=== PATIENT | male | born 1955 | race Caucasian/White ===

== ENCOUNTER → 2017-05-05 | Outpatient (CLI) | payer OTHER ==
[2017-05-05 14:20] LABS: PSA FREE 0.25 ng/mL (0.16-2.81)
[2017-05-05 14:21] LABS: PSA TOTAL 1.7 ng/mL (0.000-2.000)
== END ==
LOC: LAB.WCP 08:15
PROVIDERS: ATTEND Family Medicine
DX: R97.20 Elevated prostate specific antigen [PSA] (principal)
CPT/HCPCS: 36415; 84154

== ENCOUNTER 2018-03-12 07:05 | Day surgery (SDC) | payer OTHER ==
[2018-03-12] MEDS ORDERED: LACTATED RINGERS 1,000 ML IV ONE (07:24)
[2018-03-12] MEDS ORDERED: MIDAZOLAM 2 MG/2 ML VIAL IVP ONE (08:22)
[2018-03-12] MEDS ORDERED: fentaNYL 250 MCG/5 ML VIAL IVP ONE (08:22)
[2018-03-12 09:44] VITALS: BP 132/78
== END 2018-03-12 07:06 | disposition home or self-care (01) ==
LOC: SDS 07:05
PROVIDERS: ATTEND Surgery
PROC: 0DBK8ZX Excision of Ascending Colon, Via Natural or Artificial Opening Endoscopic, Diagnostic (ICD-10-PCS; principal; 2018-03-12 08:15)
DX: Z12.11 Encounter for screening for malignant neoplasm of colon (principal); K57.30 Diverticulosis of large intestine without perforation or abscess without bleeding; D12.2 Benign neoplasm of ascending colon; K64.8 Other hemorrhoids
CPT/HCPCS: 45380; J3010; J7120; 88305

== ENCOUNTER 2018-06-04 11:02 | Outpatient (CLI) | payer OTHER ==
[2018-06-04 19:17] LABS: BILIRUBIN,URINE NEGATIVE (NEGATIVE); GLUCOSE, URINE (UA) NEGATIVE (NEGATIVE); KETONES,URINE (UA) NEGATIVE (NEGATIVE); LEUKOCYTE ESTERASE, URINE NEGATIVE (NEGATIVE); NITRITE,URINE NEGATIVE (NEGATIVE); OCCULT BLOOD,URINE NEGATIVE (NEGATIVE); PH,URINE 5.5 PH (5.0-7.5); PROTEIN,URINE NEGATIVE (NEGATIVE); UROBILINOGEN,URINE 0.2 (NORMAL) E.U./dL (NORMAL)
[2018-06-04 19:18] LABS: CLARITY,URINE CLOUDY (CLEAR)
[2018-06-04 19:39] LABS: ALBUMIN 4.6 g/dL (3.2-5.5); ALBUMIN/GLOBULIN RATIO 1.4 (1.0-2.2); ALKALINE PHOSPHATASE 87 IU/L (42-121); ALT ALANINE AMINOTRANSFERASE 35 IU/L (10-60); AST ASPARTATE AMINOTRANSFERASE 26 IU/L (10-42); BILIRUBIN,TOTAL 1.2 mg/dL (0.2-1.0); BUN - BLOOD UREA NITROGEN 20 mg/dL (6-20); CALCIUM 9.2 mg/dL (8.5-10.3); CARBON DIOXIDE - CO2 23 mmol/L (21-32); CHLORIDE 104 mmol/L (101-111); CHOL/HDL RATIO 4.2 (<5.0); CHOLESTEROL 186 mg/dL; CREATININE 0.8 mg/dL (0.6-1.2); GFR - MDRD 98 (>89); GLUCOSE 104 mg/dL (70-100); HDL CHOLESTEROL 44 mg/dL; LDL CHOLESTEROL,CALCULATED 98 mg/dL; LDL/HDL RATIO 2.2 (<3.6); SODIUM 135 mmol/L (135-145); TOTAL PROTEIN 7.8 g/dL (6.7-8.2); VLDL CHOLESTEROL 44 mg/dL
[2018-06-04 19:41] LABS: PSA FREE 0.231 ng/mL (0.16-2.81)
[2018-06-04 19:42] LABS: PSA TOTAL 1.592 ng/mL (0.000-2.000)
[2018-06-04 20:59] LABS: AMORPHOUS SEDIMENT,UR Marked /LPF; BACTERIA,URINE None Seen /HPF (None Seen); RBC,URINE None Seen /HPF (0-5); SQUAMOUS EPITHELIAL CELL,UR NONE SEEN (<= Few)
== END 2018-06-04 11:03 | disposition home or self-care (01) ==
LOC: LAB.WCP 11:02
PROVIDERS: ATTEND Family Medicine
DX: R73.9 Hyperglycemia, unspecified (principal); I10 Essential (primary) hypertension; E78.5 Hyperlipidemia, unspecified; R97.20 Elevated prostate specific antigen [PSA]
CPT/HCPCS: 36415; 80053; 80061; 81001; 83721; 84154

== ENCOUNTER 2019-04-10 08:00 | Outpatient (CLI) | payer OTHER ==
[2019-04-10 18:59] LABS: BASOPHILS # (AUTO) 0.1 10^3/uL (0.0-0.1); BASOPHILS % (AUTO) 0.8 %; EOSINOPHILS # (AUTO) 0.2 10^3/uL (0.0-0.7); EOSINOPHILS % (AUTO) 2.4 %; HGB - HEMOGLOBIN 14.4 g/dL (14.0-18.0); LYMPHOCYTES # (AUTO) 2.5 10^3/uL (1.5-3.5); LYMPHOCYTES % (AUTO) 31.2 %; MEAN CORPUSCULAR HEMOGLOBIN 31.1 pg (27.0-31.0); MEAN CORPUSCULAR HGB CONC 33.5 g/dL (32.0-36.0); MEAN PLATELET VOLUME 8.2 fL (7.4-11.4); MONOCYTES # (AUTO) 0.7 10^3/uL (0.0-1.0); MONOCYTES % (AUTO) 9.2 %; NEUTROPHILS # (AUTO) 4.5 10^3/uL (1.5-6.6); NEUTROPHILS % (AUTO) 56.4 %; PLT - PLATELET COUNT 236 10^3/uL (130-450); RED BLOOD COUNT 4.64 10^6/uL (4.70-6.10); RED CELL DISTRIBUTION WIDTH 13.5 % (12.0-15.0)
[2019-04-10 19:10] LABS: ALBUMIN 4.8 g/dL (3.2-5.5); ALBUMIN/GLOBULIN RATIO 1.6 (1.0-2.2); ALKALINE PHOSPHATASE 61 IU/L (42-121); ALT ALANINE AMINOTRANSFERASE 35 IU/L (10-60); AST ASPARTATE AMINOTRANSFERASE 25 IU/L (10-42); BILIRUBIN,TOTAL 1.1 mg/dL (0.2-1.0); BUN - BLOOD UREA NITROGEN 18 mg/dL (6-20); CALCIUM 9.5 mg/dL (8.5-10.3); CARBON DIOXIDE - CO2 24 mmol/L (21-32); CHLORIDE 105 mmol/L (101-111); CHOLESTEROL 224 mg/dL; CREATININE 0.9 mg/dL (0.6-1.2); GFR - MDRD 85 (>89); GLUCOSE 99 mg/dL (70-100); HDL CHOLESTEROL 45 mg/dL; LDL CHOLESTEROL,CALCULATED 143 mg/dL; LDL/HDL RATIO 3.2 (<3.6); SODIUM 139 mmol/L (135-145); TOTAL PROTEIN 7.8 g/dL (6.7-8.2); VLDL CHOLESTEROL 36 mg/dL
== END 2019-04-10 08:01 | disposition home or self-care (01) ==
LOC: LAB.WCP 08:00
PROVIDERS: ATTEND Family Medicine
DX: R73.9 Hyperglycemia, unspecified (principal); I10 Essential (primary) hypertension; E78.5 Hyperlipidemia, unspecified; E66.3 Overweight
CPT/HCPCS: 36415; 80053; 80061; 81599; 83036; 83721; 84443; 85025

== ENCOUNTER 2019-10-29 09:51 | Outpatient (CLI) | payer OTHER ==
[2019-10-29 12:14] LABS: CHOL/HDL RATIO 5.4 (<5.0); CHOLESTEROL 243 mg/dL; HDL CHOLESTEROL 45 mg/dL; LDL CHOLESTEROL,CALCULATED 160 mg/dL; LDL/HDL RATIO 3.6 (<3.6); VLDL CHOLESTEROL 38 mg/dL
== END 2019-10-29 23:59 | disposition home or self-care (01) ==
LOC: LAB.N 09:51
PROVIDERS: ATTEND Family Medicine
DX: E78.5 Hyperlipidemia, unspecified (principal); R97.20 Elevated prostate specific antigen [PSA]
CPT/HCPCS: 36415; 80061; 83721; 84153

== ENCOUNTER 2020-01-01 14:37 | Outpatient (CLI) | payer OTHER ==
[2020-01-01 18:32] LABS: BASOPHILS # (AUTO) 0.1 10^3/uL (0.0-0.1); BASOPHILS % (AUTO) 1.1 %; EOSINOPHILS # (AUTO) 0.3 10^3/uL (0.0-0.7); EOSINOPHILS % (AUTO) 3.3 %; HGB - HEMOGLOBIN 12.7 g/dL (14.0-18.0); LYMPHOCYTES # (AUTO) 2.2 10^3/uL (1.5-3.5); MEAN CORPUSCULAR HEMOGLOBIN 30.5 pg (27.0-31.0); MEAN CORPUSCULAR VOLUME 92.3 fL (80.0-94.0); MEAN PLATELET VOLUME 9.8 fL (7.4-11.4); MONOCYTES # (AUTO) 0.8 10^3/uL (0.0-1.0); MONOCYTES % (AUTO) 10.4 %; NEUTROPHILS # (AUTO) 4.2 10^3/uL (1.5-6.6); NEUTROPHILS % (AUTO) 55.7 %; PLT - PLATELET COUNT 221 10^3/uL (130-450); RED BLOOD COUNT 4.17 10^6/uL (4.70-6.10); RED CELL DISTRIBUTION WIDTH 12.9 % (12.0-15.0); WHITE BLOOD COUNT 7.5 x10^3/uL (4.8-10.8)
[2020-01-01 19:15] LABS: ALBUMIN/GLOBULIN RATIO 1.2 (1.0-2.2); BILIRUBIN,TOTAL 0.9 mg/dL (0.2-1.0); CALCIUM 8.8 mg/dL (8.5-10.3); CREATININE 0.8 mg/dL (0.6-1.2); TOTAL PROTEIN 7.3 g/dL (6.7-8.2)
== END 2020-01-01 23:59 | disposition home or self-care (01) ==
LOC: LAB.N 14:37
PROVIDERS: ATTEND Family Medicine
DX: R10.9 Unspecified abdominal pain (principal)
CPT/HCPCS: 36415; 80053; 82150; 83690; 85025

== ENCOUNTER 2020-01-03 06:46 | Outpatient (CLI) | payer OTHER ==
--- NOTE | 2020-01-03 08:10 | Ultrasound Report ---
Reason: ABDOMINAL DISCOMFORT Procedure Date: 01/03/2020 Accession Number: [id number] / [id number] Procedure: US - Abdomen Complete CPT Code: Final Report FULL RESULT: EXAM: ABDOMEN ULTRASOUND EXAM DATE: 01/03/2020 07:44 AM. CLINICAL HISTORY: ABDOMINAL DISCOMFORT. COMPARISON: Ultrasound ABD 11/01/2008 8:[address] abdomen and pelvis 08/12/2008. TECHNIQUE: Real-time scanning was performed with static images obtained. FINDINGS: Liver: Mildly enlarged, 18.7 cm. Mildly hyperechoic throughout with mildly decreased posterior acoustic penetration suggesting diffuse steatosis. Main portal vein flow: Hepatopetal. Gallbladder: Surgically absent. Biliary System: Common bile duct measures 7 mm. No intrahepatic or extrahepatic ductal dilatation. Pancreas: Poorly visualized because of bowel gas. The body is grossly unremarkable. Kidneys: Right: 11.0 cm longitudinally. Normal. No contour-deforming mass, stones, or hydronephrosis. Left: 10.6 cm longitudinally. Normal. No contour-deforming mass, stones, or hydronephrosis. Spleen: 11.2 cm. Normal in size and echotexture. Aorta and Inferior Vena Cava: Minimal plaque in the distal abdominal aorta without abnormal dilation. Visualized IVC unremarkable. Other: No ascites. IMPRESSION: 1. Mild hepatomegaly. Mild diffuse hepatic steatosis. 2. No findings are identified to explain pain. RADIA
== END 2020-01-03 06:47 | disposition home or self-care (01) ==
LOC: DI 06:46
PROVIDERS: ATTEND Family Medicine
DX: R10.9 Unspecified abdominal pain (principal); K76.0 Fatty (change of) liver, not elsewhere classified
CPT/HCPCS: 76700

== ENCOUNTER 2020-01-03 08:00 | Outpatient (CLI) | payer OTHER ==
[2020-01-03 12:54] LABS: H. PYLORIS ANTIGEN STL NEGATIVE (Negative)
== END 2020-01-03 23:59 | disposition home or self-care (01) ==
LOC: LAB.R 08:00
PROVIDERS: ATTEND Family Medicine
DX: R10.9 Unspecified abdominal pain (principal)
CPT/HCPCS: 87338; 87493

== ENCOUNTER 2020-12-30 08:00 | Outpatient (CLI) | payer OTHER ==
[2020-12-30 12:25] LABS: BASOPHILS % (AUTO) 0.5 %; EOSINOPHILS # (AUTO) 0.2 10^3/uL (0.0-0.7); EOSINOPHILS % (AUTO) 2.1 %; HCT - HEMATOCRIT 40.8 % (42.0-52.0); HGB - HEMOGLOBIN 13.9 g/dL (14.0-18.0); LYMPHOCYTES # (AUTO) 2.1 10^3/uL (1.5-3.5); LYMPHOCYTES % (AUTO) 24.6 %; MEAN CORPUSCULAR HEMOGLOBIN 32.2 pg (27.0-31.0); MEAN CORPUSCULAR HGB CONC 34.1 g/dL (32.0-36.0); MEAN CORPUSCULAR VOLUME 94.4 fL (80.0-94.0); MEAN PLATELET VOLUME 10.1 fL (7.4-11.4); MONOCYTES # (AUTO) 0.7 10^3/uL (0.0-1.0); MONOCYTES % (AUTO) 8.2 %; NEUTROPHILS # (AUTO) 5.5 10^3/uL (1.5-6.6); NEUTROPHILS % (AUTO) 64.2 %; PLT - PLATELET COUNT 219 10^3/uL (130-450); RED BLOOD COUNT 4.32 10^6/uL (4.70-6.10); RED CELL DISTRIBUTION WIDTH 12.7 % (12.0-15.0); WHITE BLOOD COUNT 8.5 x10^3/uL (4.8-10.8)
[2020-12-30 12:53] LABS: CREATININE,URINE 183.3 mg/dL; MICROALBUM/CREATININE RATIO,UR 3.8 ug/mg (<30.0); MICROALBUMIN,URINE 0.7 mg/dL (0-300.0)
[2020-12-30 12:57] LABS: THYROID STIMULATING HORMONE 1.7 uIU/mL (0.34-5.60)
[2020-12-30 13:02] LABS: ALBUMIN 4.2 g/dL (3.2-5.5); ALBUMIN/GLOBULIN RATIO 1.4 (1.0-2.2); ALKALINE PHOSPHATASE 85 IU/L (42-121); ALT ALANINE AMINOTRANSFERASE 29 IU/L (10-60); AST ASPARTATE AMINOTRANSFERASE 18 IU/L (10-42); BILIRUBIN,TOTAL 0.6 mg/dL (0.2-1.0); BUN - BLOOD UREA NITROGEN 20 mg/dL (6-20); CALCIUM 9.2 mg/dL (8.5-10.3); CARBON DIOXIDE - CO2 23 mmol/L (21-32); CHLORIDE 110 mmol/L (101-111); CHOL/HDL RATIO 4.2 (<5.0); CHOLESTEROL 188 mg/dL; GFR - MDRD 75 (>89); GLUCOSE 112 mg/dL (70-100); HDL CHOLESTEROL 45 mg/dL; LDL CHOLESTEROL,CALCULATED 120 mg/dL; LDL/HDL RATIO 2.7 (<3.6); POTASSIUM 4.1 mmol/L (3.5-5.0); SODIUM 139 mmol/L (135-145); TOTAL PROTEIN 7.3 g/dL (6.7-8.2); TRIGLYCERIDES 116 mg/dL; VLDL CHOLESTEROL 23 mg/dL
[2020-12-30 13:15] LABS: ESTIMATED AVERAGE GLUCOSE 100 mg/dL (70-100); HEMOGLOBIN A1c% 5.1 % (4.27-6.07)
== END 2020-12-30 23:59 | disposition home or self-care (01) ==
LOC: LAB.WCP 08:00
PROVIDERS: ATTEND Internal Medicine
DX: I10 Essential (primary) hypertension (principal); R73.9 Hyperglycemia, unspecified; R97.20 Elevated prostate specific antigen [PSA]
CPT/HCPCS: 36415; 80053; 80061; 82043; 82570; 83036; 83721; 84153; 84443; 85025

== ENCOUNTER 2021-04-29 08:00 | Outpatient (CLI) | payer OTHER ==
[2021-04-29 17:53] LABS: BASOPHILS # (AUTO) 0.1 10^3/uL (0.0-0.1); BASOPHILS % (AUTO) 0.8 %; EOSINOPHILS # (AUTO) 0.2 10^3/uL (0.0-0.7); HCT - HEMATOCRIT 40.3 % (42.0-52.0); HGB - HEMOGLOBIN 13.5 g/dL (14.0-18.0); LYMPHOCYTES # (AUTO) 2.2 10^3/uL (1.5-3.5); LYMPHOCYTES % (AUTO) 24.3 %; MEAN CORPUSCULAR HEMOGLOBIN 31.5 pg (27.0-31.0); MEAN CORPUSCULAR HGB CONC 33.5 g/dL (32.0-36.0); MEAN CORPUSCULAR VOLUME 93.9 fL (80.0-94.0); MEAN PLATELET VOLUME 10.5 fL (7.4-11.4); MONOCYTES # (AUTO) 0.8 10^3/uL (0.0-1.0); MONOCYTES % (AUTO) 8.2 %; NEUTROPHILS # (AUTO) 5.9 10^3/uL (1.5-6.6); PLT - PLATELET COUNT 236 10^3/uL (130-450); RED BLOOD COUNT 4.29 10^6/uL (4.70-6.10); RED CELL DISTRIBUTION WIDTH 12.8 % (12.0-15.0); WHITE BLOOD COUNT 9.2 x10^3/uL (4.8-10.8)
[2021-04-29 17:55] LABS: BILIRUBIN,URINE NEGATIVE (NEGATIVE); GLUCOSE, URINE (UA) NEGATIVE (NEGATIVE); KETONES,URINE (UA) NEGATIVE (NEGATIVE); LEUKOCYTE ESTERASE, URINE NEGATIVE (NEGATIVE); NITRITE,URINE NEGATIVE (NEGATIVE); OCCULT BLOOD,URINE NEGATIVE (NEGATIVE); PROTEIN,URINE NEGATIVE (NEGATIVE); UROBILINOGEN,URINE 0.2 (NORMAL) E.U./dL (NORMAL)
[2021-04-29 17:56] LABS: CLARITY,URINE CLOUDY (CLEAR)
[2021-04-29 18:03] LABS: AMORPHOUS SEDIMENT,UR Marked /LPF; BACTERIA,URINE None Seen /HPF (None Seen); RBC,URINE 0-5 /HPF (0-5); SQUAMOUS EPITHELIAL CELL,UR NONE SEEN (<= Few); WBC,URINE 0-3 /HPF (0-3)
[2021-04-29 18:19] LABS: ALBUMIN 4.8 g/dL (3.2-5.5); ALBUMIN/GLOBULIN RATIO 1.5 (1.0-2.2); BILIRUBIN,TOTAL 1.9 mg/dL (0.2-1.0); CALCIUM 9.3 mg/dL (8.5-10.3); TOTAL PROTEIN 8.1 g/dL (6.7-8.2)
== END 2021-04-29 23:59 | disposition home or self-care (01) ==
LOC: LAB.WCP 08:00
PROVIDERS: ATTEND Internal Medicine
DX: R10.9 Unspecified abdominal pain (principal)
CPT/HCPCS: 36415; 80053; 81001; 85025; 87086

== ENCOUNTER 2021-05-26 11:45 | Outpatient (CLI) | payer OTHER ==
[2021-05-26] MEDS ORDERED: IOPAMIDOL-300 100 ML VIAL ONE (11:55)
[2021-05-26] MEDS ORDERED: IOPAMIDOL-300 100 ML VIAL IVP ONE (12:23)
--- NOTE | 2021-05-26 15:20 | CT Report ---
PROCEDURE: IVP INDICATIONS: RIGHT FLANK PAIN CONTRAST: IV CONTRAST: Isovue 300 ml: 140 PO CONTRAST: *NO PO CONTRAST TECHNIQUE: After the administration of intravenous contrast, 5 mm thick sections acquired from the diaphragms to the symphysis. 5 mm thick coronal and sagittal reformats were acquired. For radiation dose reducti on, the following was used: automated exposure control, adjustment of mA and/or kV according to mary ent size. COMPARISON: None. FINDINGS: Image quality: Excellent. Lung bases: Lung bases are clear. Heart size is normal. Urinary system: Both kidneys are normal in size and enhancement. Contrast-filled renal calyces are normal in morphology. Contrast filled portions of both ureters are normal in caliber. Bladder wall thickness is normal. Solid organs: There is mild hepatomegaly and hepatic steatosis. No discrete hepatic lesion. Spleen sh ow normal size and enhancement. Gallbladder is surgically absent. Biliary system is non dilated. Pa ncreas enhances normally. No adrenal nodules. Peritoneum and bowel: Bowel loops demonstrate normal wall thickness and caliber. No free fluid or a ir. Appendix is visualized and is within normal limits. Extensive sigmoid diverticulosis is seen, no CT evidence of acute diverticulitis. Nodes and vessels: No retroperitoneal or mesenteric adenopathy by size criteria. Aorta and inferior vena cava are normal in size. Mild atherosclerotic calcifications are noted in abdominal aorta. Abdominal wall: Small umbilical hernia is seen containing fat only. At least 2 ventral hernias just t o the right of midline is seen containing fat only. Pelvis: No pathologic free pelvic fluid. No inguinal hernias or adenopathy. Bones: No suspicious bony lesions. No vertebral body compression fractures. Degenerative disc dise ase throughout lower thoracic and lumbar spine is seen more prominent at L3-4 through L5-S1 levels. IMPRESSION: 1. No renal stone or hydronephrosis. No enhancing renal lesion. Normal appearing bilateral renal khalif ecting systems and ureters. Normal-appearing urinary bladder. 2. No acute inflammatory process is seen in abdomen or pelvis. No bowel obstruction. Normal appendix. Sigmoid diverticulosis without evidence of acute diverticulitis. No free fluid or free air. 3. Mild hepatomegaly and mild to moderate hepatic steatosis. No discrete hepatic lesion. 4. Small ventral hernias and small umbilical hernia as described above containing fat only. 5. Degenerative disc disease throughout lower thoracic and lumbar spine more prominent at L3-4 throug h L5-S1 levels. Reviewed by: Kings Samuels MD on 05/26/2021 3:18 PM PDT Approved by: Kings Samuels MD on 05/26/2021 3:18 PM PDT Station ID: [id number]
== END 2021-05-26 11:46 | disposition home or self-care (01) ==
LOC: DI 11:45
PROVIDERS: ATTEND Internal Medicine
DX: R10.9 Unspecified abdominal pain (principal); K76.0 Fatty (change of) liver, not elsewhere classified; K42.9 Umbilical hernia without obstruction or gangrene; K43.9 Ventral hernia without obstruction or gangrene; M51.34 Other intervertebral disc degeneration, thoracic region; M51.37 Other intervertebral disc degeneration, lumbosacral region
CPT/HCPCS: 74178; Q9967

== ENCOUNTER 2022-11-30 16:01 | Outpatient (CLI) | payer OTHER ==
--- NOTE | 2022-11-30 19:29 | XRAY Report ---
PROCEDURE: Lumbar Spine Complete INDICATIONS: BACK PAIN,LUMBAR,WITH RADICULOPATHY TECHNIQUE: 4 views of the lumbar spine were acquired. COMPARISON: CT IVP dated 05/26/2021. FINDINGS: Bones: 5 bao-esk-zaaukoq vertebrae are present. There is 4 mm retrolisthesis of L1 on L2 and 5 mm r etrolisthesis of L2 on L3. Degenerative endplate changes, loss of disc height and bilateral facet art hrosis throughout lumbar spine is seen most notably at L4-5 and L5-S1 levels. No vertebral body compr ession fractures. No suspicious bony lesions. Oblique views shows no pars defects. Soft tissues: Overlying bowel gas pattern is normal. No suspicious soft tissue calcifications. IMPRESSION: Grade 1 retrolisthesis at L1-2 and L2-3 levels as above. Degenerative disc disease throu ghout lumbar spine most notably at L4-5 and L5-S1 levels. No acute compression fracture. No pars defe cts. Reviewed by: Kings Mendenhall MD on 11/30/2022 7:27 PM PST Approved by: Kings Mendenhall MD on 11/30/2022 7:27 PM PST Station ID: [id number]
== END 2022-11-30 16:02 | disposition home or self-care (01) ==
LOC: DI 16:01
PROVIDERS: ATTEND Physician Assistant
DX: M43.16 Spondylolisthesis, lumbar region (principal); M47.26 Other spondylosis with radiculopathy, lumbar region; M47.27 Other spondylosis with radiculopathy, lumbosacral region

== ENCOUNTER 2023-01-18 07:56 | Outpatient (CLI) | payer OTHER ==
[2023-01-18 08:11] LABS: BASOPHILS # (AUTO) 0.1 10^3/uL (0.0-0.1); BASOPHILS % (AUTO) 0.6 %; EOSINOPHILS # (AUTO) 0.4 10^3/uL (0.0-0.7); EOSINOPHILS % (AUTO) 5.4 %; HCT - HEMATOCRIT 41.3 % (42.0-52.0); HGB - HEMOGLOBIN 13.9 g/dL (14.0-18.0); LYMPHOCYTES # (AUTO) 2.9 10^3/uL (1.5-3.5); LYMPHOCYTES % (AUTO) 35.4 %; MEAN CORPUSCULAR HEMOGLOBIN 31.2 pg (27.0-31.0); MEAN CORPUSCULAR HGB CONC 33.7 g/dL (32.0-36.0); MEAN CORPUSCULAR VOLUME 92.6 fL (80.0-94.0); MEAN PLATELET VOLUME 9.7 fL (7.4-11.4); MONOCYTES # (AUTO) 0.9 10^3/uL (0.0-1.0); MONOCYTES % (AUTO) 10.5 %; NEUTROPHILS # (AUTO) 3.9 10^3/uL (1.5-6.6); NEUTROPHILS % (AUTO) 47.6 %; PLT - PLATELET COUNT 176 10^3/uL (130-450); RED BLOOD COUNT 4.46 10^6/uL (4.70-6.10); RED CELL DISTRIBUTION WIDTH 12.7 % (12.0-15.0); WHITE BLOOD COUNT 8.2 x10^3/uL (4.8-10.8)
[2023-01-18 08:23] LABS: CREATININE,URINE 154.4 mg/dL; MICROALBUM/CREATININE RATIO,UR 2.6 ug/mg (<30.0); MICROALBUMIN,URINE 0.4 mg/dL (0-300.0)
[2023-01-18 08:25] LABS: ALBUMIN 4.1 g/dL (3.2-5.5); ALBUMIN/GLOBULIN RATIO 1.3 (1.0-2.2); ALKALINE PHOSPHATASE 78 IU/L (42-121); ALT ALANINE AMINOTRANSFERASE 24 IU/L (10-60); AST ASPARTATE AMINOTRANSFERASE 16 IU/L (10-42); BUN - BLOOD UREA NITROGEN 26 mg/dL (6-20); CALCIUM 8.7 mg/dL (8.5-10.3); CARBON DIOXIDE - CO2 24 mmol/L (21-32); CHLORIDE 106 mmol/L (101-111); CHOL/HDL RATIO 4.6 (<5.0); CHOLESTEROL 190 mg/dL; GFR - MDRD 74 (>89); GLUCOSE 103 mg/dL (70-100); HDL CHOLESTEROL 41 mg/dL; LDL CHOLESTEROL,CALCULATED 127 mg/dL; LDL/HDL RATIO 3.1 (<3.6); POTASSIUM 4.3 mmol/L (3.5-5.0); SODIUM 137 mmol/L (135-145); TOTAL PROTEIN 7.2 g/dL (6.7-8.2); TRIGLYCERIDES 108 mg/dL; VLDL CHOLESTEROL 22 mg/dL
[2023-01-18 09:50] LABS: ESTIMATED AVERAGE GLUCOSE 94 mg/dL (70-100); HEMOGLOBIN A1c% 4.9 % (4.27-6.07)
== END 2023-01-18 07:57 | disposition home or self-care (01) ==
LOC: LAB 07:56
PROVIDERS: ATTEND Internal Medicine
DX: I10 Essential (primary) hypertension (principal); E78.5 Hyperlipidemia, unspecified; R73.9 Hyperglycemia, unspecified; R97.20 Elevated prostate specific antigen [PSA]
CPT/HCPCS: 36415; 80053; 80061; 82043; 82570; 83036; 83721; 84153; 85025

== ENCOUNTER 2023-05-21 15:58 | Outpatient (CLI) | payer OTHER | END 2023-05-21 23:59 | disposition EMS.NT | LOC: EMS 15:58 | DX: S99.912A Unspecified injury of left ankle, initial encounter (principal); W17.89XA Other fall from one level to another, initial encounter; Y93.01 Activity, walking, marching and hiking; Y92.814 Boat as the place of occurrence of the external cause ==

== ENCOUNTER 2023-05-21 16:37 | Emergency (ER) | payer OTHER ==
--- OUTSIDE RECORDS SUMMARY | 2023-05-21 17:45 | EXTERNAL MEDICAL SUMMARY RPT | Continuity of Care Document ---
Author Name Unknown Address [address] [place] [address] Phone Organization [facility] Address [address] [place], [place] [id number] Phone Results/Labs test date facility value unit notes
[2023-05-21] MEDS ORDERED: oxyCODONE 5 MG TABLET PO STA (17:59)
[2023-05-21] MEDS ORDERED: oxyCODONE/ACET 5/325 Prepack 4 PO STA (17:59)
--- NOTE | 2023-05-21 18:00 | XRAY Report ---
PROCEDURE: Ankle 3 View LT INDICATIONS: Injury TECHNIQUE: 3 views of the ankle were acquired. COMPARISON: None. FINDINGS: Bones: There is a moderately displaced fracture seen involving the distal fibula, with intra-articul ar involvement and mild comminuted fragments. No fracture is seen just below the level of the syndesm osis. The syndesmosis itself is mildly widened. Ankle mortise is normally aligned. No suspicious bony lesions. An accessory ossicle is seen, an os trigonum. A moderate plantar calcaneal spur is incidentally note d. Soft tissues: There is a moderate tibiotalar joint effusion. Achilles tendon appears normal. IMPRESSION: There is a moderately displaced distal fibular fracture, with intra-articular involvement. Mildly widened syndesmosis. Reviewed by: Roque Gonzalez MD on 05/21/2023 4:58 PM [facility] Approved by: Roque Gonzalez MD on 05/21/2023 4:58 PM [facility] Station ID: [id number]
--- NOTE | 2023-05-21 18:01 | ED Physician Documentation ---
PD HPI LOWER EXT INJURY - Stated complaint Stated Complaint: FELL,L ANKLE PX - Chief complaint Chief Complaint: Trauma Ext - History obtained from History obtained from: Patient - History of Present Illness PD HPI LOW EXT INJURY LOCATION: Left, Ankle Type of injury: Fall Timing - onset: How many hours ago (1) Pain level max: 8 Pain level now: 6 Improved by: Rest, Immobilization Worsened by: Moving, Palpating Associated symptoms: Swelling Contributing factors: No: Anticoagulated - Additional information Additional information: Patient is a 67-year-old male who presents to the emergency department left ankle pain after falling on his boat today. Worse with movement, better with rest. No numbness or tingling. Review of Systems Musculoskeletal: denies: Neck pain, Back pain Neurologic: denies: Head injury, LOC PD PAST MEDICAL HISTORY - Past Medical History Past Medical History: Yes Cardiovascular: Hypertension GI: GERD - Past Surgical History Past Surgical History: Yes General: Cholecystectomy, Bowel surgery, Colonoscopy Ortho: Rotator cuff repair - Present Medications Home Medications: Ambulatory Orders Medication Instructions Recorded Confirmed Omeprazole 20 mg BID 05/06/14 05/06/14 Aspirin 81 mg PO 03/09/18 Cholecalciferol (Vitamin D3) 1,000 unit PO 03/09/18 [Vitamin D3] HYDROcodone/ACET 10/325 [[place] 10 1 each PO Q4-6H 03/09/18 03/12/18 mg/325 mg] Losartan [Cozaar] 50 mg PO DAILY 03/09/18 03/12/18 Zolpidem Tartrate [Ambien] 10 mg PO 03/12/18 Oxycodone HCl/Acetaminophen 1 - 2 each PO Q6H PRN #14 tablet 05/21/23 [Percocet 5-325 mg Tablet] MDD 6 tabs - Allergies Allergies/Adverse Reactions: Allergies Allergy/AdvReac Type Severity Reaction Status Date / Time No Known Drug Allergies Allergy Verified 05/21/23 17:09 - Social History Does the pt smoke?: No Smoking Status: Never smoker Does the pt drink ETOH?: No Does the pt have substance abuse?: No - Immunizations Immunizations are current?: No PD ED PE NORMAL - Vitals Vital signs reviewed: Yes - General General: Alert and oriented X 3, No acute distress - HEENT HEENT: Moist mucous membranes - Derm Derm: Warm and dry - Extremities Extremities: Other (Left ankle with swelling, neurovascular intact. No gross deformity. Tender to palpation over the lateral malleolus. Otherwise normal exam of the foot and ankle. Brisk cap refill) - Neuro Neuro: Alert and oriented X 3 Results - Vitals Vitals: Vital Signs - 24 hr 05/21/23 05/21/23 17:03 18:26 Temperature 37.1 C Heart Rate 82 82 Respiratory 18 17 Rate Blood Pressure 143/70 H 152/67 H O2 Saturation 96 100 Oxygen O2 Source Room air - Rads (name of study) Left ankle x-ray Relevant Findings:: Final report received, See rad report Procedures - Splint (location) - Minor Left ankle Splint applied by: Physician, Tech Type of splint: Fiberglass, Short leg, Posterior, Stirrup Other: Patient tolerated well, No complications, Neurovascular intact, Crutches provided PD Medical Decision Making - ED course Complexity details: reviewed results, re-evaluated patient, considered differential, d/w patient, d/w virtualization consultant ED course: 67-year-old male with a left distal fibula fracture that extends into the intra- articular space. Mildly widened syndesmosis. Neurovascular intact. Brisk cap refill. Discussed the case with orthopedics, Dr. Wagner, recommends short leg posterior splint with stirrups. This was applied. Given crutches. Pain medication given. Recommends follow-up in the office on Monday or Monday and likely plan for surgery on Monday. This was discussed with the patient as well. Prepack of oxycodone was given to the patient for home. Will prescribe pain medication as well. Patient counseled to elevate the leg whenever possible to help decrease swelling. Patient counseled regarding signs and symptoms for which I believe and urgent re-evaluation would be necessary. Patient with good understanding of and agreement to plan and is comfortable going home at this time This document was made in part using voice recognition software. While efforts are made to proofread this document, sound alike and grammatical errors may occur. Departure - Departure Disposition: 01 Home, Self Care Clinical Impression: Fracture of distal fibula Qualifiers: Encounter type: initial encounter Fracture type: closed Fracture morphology: unspecified fracture morphology Laterality: left Qualified Code(s): S82.832A - Other fracture of upper and lower end of left fibula, initial encounter for closed fracture Ankle syndesmosis disruption Qualifiers: Encounter type: initial encounter Laterality: left Qualified Code(s): S93.432A - Sprain of tibiofibular ligament of left ankle, initial encounter Condition: Good Instructions: ED Fx Ankle Lateral Malleolus Follow-Up: Ivan Wagner MD [Provider Admit Priv/Credential] - Prescriptions: Oxycodone HCl/Acetaminophen [Percocet 5-325 mg Tablet] 1 - 2 each PO Q6H PRN #14 tablet MDD 6 tabs PRN Reason: pain Comments: Your note sent to [facility] in [place]. Please follow-up with Dr. Wagner and orthopedics for further care. I spoke with him tonight. Please contact his office tomorrow for an appointment. You will need to elevate your leg is much as possible. This will help to decrease the swelling so that surgery can be expedited. His current plan is to see you in the office likely on Monday and plan for surgery on Monday. I am prescribing a short course of narcotic pain medication for you. These are potentially dangerous and addictive medications that should be used carefully. These medications may constipate you. Take an nhqf-umo-ypeimcy stool softener (docusate) twice daily with plenty of water while taking these medications. If you go 24 hours without a bowel movement, take jjam-smo-lidexrv miralax, per package instructions. Do not drink or drive while taking these medications. If you received narcotic or sedating medications while in the emergency department, do not drive for 24 hours. Store this medication in a safe, secure place and out of reach of children. It is a violation of federal law to give or sell this medication to another person or to use in a manner other than prescribed. The ED will not refill narcotic prescriptions, including prescriptions lost or stolen. To dispose of unwanted medications: 1. [facility] at [address] in [place] has a medication drop box. They accept prescription medications (in pill form) Monday through Monday 9:00 a.m. to 5:00 p.m. 2. The [facility] [place] [employer] accepts prescription medications (in pill form only) for disposal year round. Call for more information. 3. Contact the [facility] for the next [facility] sponsored prescription drug collection event. , [id number], or [id number]; TECHNIQUE: 3 views of the ankle were acquired. COMPARISON: None. FINDINGS: Bones: There is a moderately displaced fracture seen involving the distal fibula, with intra- articular involvement and mild comminuted fragments. No fracture is seen just below the level of the syndesmosis. The syndesmosis itself is mildly widened. Ankle mortise is normally aligned. No suspicious bony lesions. An accessory ossicle is seen, an os trigonum. A moderate plantar calcaneal spur is incidentally noted. Soft tissues: There is a moderate tibiotalar joint effusion. Achilles tendon appears normal. IMPRESSION: There is a moderately displaced distal fibular fracture, with intra-articular involvement. Mildly widened syndesmosis. Forms: PCP List Discharge Date/Time: 05/21/23 18:35
[2023-05-21 18:33] VITALS: BP 152/67
== END 2023-05-21 18:35 | disposition home or self-care (01) ==
LOC: ED 16:37
DX: S82.832A Other fracture of upper and lower end of left fibula, initial encounter for closed fracture (principal); S93.432A Sprain of tibiofibular ligament of left ankle, initial encounter; W17.89XA Other fall from one level to another, initial encounter; Y93.89 Activity, other specified; Y92.814 Boat as the place of occurrence of the external cause
CPT/HCPCS: 29515; 73610; 99283; 99284; A9270

== ENCOUNTER 2023-05-24 12:03 | Day surgery (SDC) | payer OTHER ==
[2023-05-24] MEDS ORDERED: ceFAZolin 2 GM VIAL ONE (12:15)
[2023-05-24] MEDS ORDERED: CELECOXIB 100 MG CAPSULE PO ONE (12:16)
[2023-05-24] MEDS ORDERED: GABAPENTIN 400 MG CAPSULE ONE (12:16)
[2023-05-24] MEDS ORDERED: ACETAMINOPHEN 325 MG TABLET PO ONE (12:17)
[2023-05-24] MEDS ORDERED: PROPOFOL 500 MG/50 ML 500 MG/50 ML VIAL ONE (12:20)
[2023-05-24] MEDS ORDERED: fentaNYL 100 MCG/2 ML VIAL ONE (12:20)
[2023-05-24] MEDS ORDERED: ROPIVACAINE 0.5% PF 20 ML VIAL ONE (12:20)
[2023-05-24] MEDS ORDERED: MIDAZOLAM 2 MG/2 ML VIAL ONE (12:20)
[2023-05-24] MEDS ORDERED: LIDOCAINE-PF 2% 10 ML AMP SUBQ ONE (12:21)
[2023-05-24] MEDS ORDERED: BUPIVACAINE 0.25% PF 30 ML VIAL ONE ×2 (12:22→12:24)
[2023-05-24] MEDS ORDERED: LACTATED RINGERS 1,000 ML IV ONE ×2 (12:45→15:14)
[2023-05-24] MEDS ORDERED: HYDROmorphone 0.5 MG/0.5 ML SYRINGE IVP PRN (13:43)
[2023-05-24] MEDS ORDERED: NALOXONE 0.4 MG/ML VIAL IVP PRN (13:43)
[2023-05-24] MEDS ORDERED: fentaNYL 100 MCG/2 ML VIAL IVP PRN (13:43)
[2023-05-24] MEDS ORDERED: ONDANSETRON 4 MG/2 ML VIAL IVP PRN ×2 (13:43→15:11)
[2023-05-24] MEDS ORDERED: ePHEDrine 50 MG/ML VIAL IVP PRN (13:43)
[2023-05-24] MEDS ORDERED: ATROPINE ABBOJECT 1 MG/10 ML SYRINGE IVP PRN (13:43)
--- NOTE | 2023-05-24 13:43 | ANESTHESIA ---
Pre-Anesthesia VS, & Labs - Diagnosis L distal fibula displaced fx - Procedure L fibula orif Vital Signs: Temp Pulse Resp BP Pulse Ox O2 Flow Rate 37.2 C 100 14 139/91 H 96 05/24/23 12:26 05/24/23 12:26 05/24/23 12:26 05/24/23 12:26 05/24/23 12:26 Height: 5 ft 8 in Weight (kg): 90 kg Body Mass Index: 30.2 BMI Classification: Obese - NPO >8 hours - Lab Results Lab results reviewed: Yes Home Medications and Allergies Home Medications: Ambulatory Orders Celecoxib [Celebrex] 200 mg PO DAILY 05/23/23 Famotidine 40 mg PO DAILY 05/23/23 Gabapentin [Neurontin] 300 mg PO BID 05/23/23 Latanoprost 0.005% Ophth Drops [Xalatan Ophth Drops] 1 drops EACHEYE DAILY 05/23/23 Losartan/Hydrochlorothiazide [Losartan-Hctz 100-12.5 mg Tab] 1 each PO DAILY 05/23/23 Rosuvastatin Calcium [Crestor] 10 mg PO HS 05/23/23 Cholecalciferol (Vitamin D3) [Vitamin D3] 1,000 unit PO DAILY 03/09/18 Zolpidem Tartrate [Ambien] 10 mg PO HS 03/12/18 Celecoxib [Celebrex] 200 mg PO DAILY 05/23/23 Famotidine 40 mg PO DAILY 05/23/23 Gabapentin [Neurontin] 300 mg PO BID 05/23/23 Latanoprost 0.005% Ophth Drops [Xalatan Ophth Drops] 1 drops EACHEYE DAILY 05/23/23 Losartan/Hydrochlorothiazide [Losartan-Hctz 100-12.5 mg Tab] 1 each PO DAILY 05/23/23 Rosuvastatin Calcium [Crestor] 10 mg PO HS 05/23/23 Allergies/Adverse Reactions: Allergies Allergy/AdvReac Type Severity Reaction Status Date / Time No Known Drug Allergies Allergy Verified 05/21/23 17:09 Anes History & Medical History - Anesthetic History Anesthesia Complications: reports: No previous complications Family history of Anesthesia Complications: Denies Family history of Malignant Hyperthermia: Denies - Medical History Cardiovascular: reports: Hypertension Pulmonary: reports: None Gastrointestinal: reports: GERD (rare diet related symptoms) Urinary: reports: None Neuro: reports: None Musculoskeletal: reports: Other (surgical focus) Endocrine/Autoimmune: reports: None Blood Disorders: reports: None Smoking Status: Never smoker - Surgical History General: reports: Cholecystectomy, Bowel surgery, Colonoscopy Orthopedic: reports: Rotator cuff repair Exam General: Alert, Oriented x3, Cooperative Dental: WNL Mouth Openin Fingerbreadth Neck Mobility: Normal Mallampati classification: II Thyromental Distance: 4-6 cm Respiratory: Lungs clear Cardiovascular: Regular rate Plan Anesthesia Type: General, Popliteal Block Regional Block: Per Surgeon's request for Post Op pain control Consent for Procedure(s) Verified and Reviewed: Yes Code Status: Attempt Resuscitation ASA classification: 2-Mild systemic disease Is this case an emergency?: No
[2023-05-24] MEDS ORDERED: BUPIVACAINE 0.25% PF 30 ML VIAL SUBQ ONE (13:53)
[2023-05-24] MEDS ORDERED: VANCOMYCIN 1 GM VIAL MC ONE (13:54)
[2023-05-24] MEDS ORDERED: LACTATED RINGERS 1,000 ML IV SCH (14:00)
--- NOTE | 2023-05-24 14:49 | OPERATIVE REPORT ---
Operative Report - General Procedure Date: 05/24/23 Planned Procedure: Open reduction internal fixation lateral malleolus left ankle Pre-Op Diagnosis: Displaced lateral malleolus fracture Left ankle Procedure Performed: Open reduction internal fixation lateral malleolus left ankle [employer]hew 3.5 mm posterolateral plate utilized Post Op Diagnosis: Same as preoperative diagnosis - Procedure Note Primary Surgeon: Ivan Wagner MD Secondary Surgeon: Tatyana Mejía PAC Anesthesia Provider: Immanuel Phan CRNA Anesthesia Technique: General ET tube, Regional block Estimated Blood Loss (mL): 10 Indications: This is a 67-year-old gentleman, fell from a ladder, sustaining isolated injury to the left ankle within the past week. He had pain about the left ankle and difficulty bearing any weight on left ankle. Most of this pain was over the lateral aspect of his left ankle. He was seen in the emergency room where he had x-ray and examination that suggested an unstable ankle fracture of the left ankle. He was placed in a short leg splint and seen in my office for orthopedic evaluation. He denies previous problems with his left ankle. His general health has been relatively good. His exam shows swelling but no sign of fracture blisters or compartment syndrome. He had painful and limited motion of left ankle with tenderness over the lateral malleolus and minimal tenderness over the deltoid. His x-rays showed a displaced Orantes B lateral malleolar fracture of the left ankle, widened medial clear space consistent with deltoid rupture and a bimalleolar equivalent fracture subluxation of the left ankle. This is a closed fracture. The risk, goals and alternatives were discussed with the patient. He did sign an informed consent at our office prior to surgery and in agreement to the open reduction internal fixation of left ankle and possible deltoid repair Findings: He had a displaced Orantes B lateral malleolus fracture with minimal comminution. The syndesmosis appears to be intact.The medial malleolus and the posterior malleolus were intact. Complications: None - Other Other Information/Narrative: The patient was brought to the operating room after receiving a popliteal block. He was given a general anesthetic. The left lower extremity was prepped and draped in a sterile manner in the usual fashion. A pneumatic tourniquet had been applied to the proximal left thigh but was not utilized during surgery. A foam ramp was applied beneath the left leg. A gel bag was placed beneath the left buttock to facilitate internal rotation of the left leg. A timeout procedure was performed by the entire operating room team and all were in agreement. A longitudinal incision was done near the distal end of the lateral malleolus and extended proximally several centimeters along the posterior border of the fibula. The fascia was split in a limited subperiosteal dissection about the fracture site was performed. The fracture hematoma was removed with a curette and saline irrigation. The fracture was reduced over a bump with traction and inversion. A bone clamp had been applied proximal to the fracture site for traction. A bone tamp was used to reduce the distal fragment and then the fracture was stabilized with a small bone clamp. A 3.5 cortical lag screw was inserted from posterior to anterior perpendicular to the fracture site and was countersunk to allow for a posterolateral plate to be applied.The Mckeon [employer] Nephew 5 hole posterolateral plate was applied this was placed posteriorly to better screw fixation and screws across the fracture site. The peroneal tendons were protected. Locking screws were inserted distally and nonlocking screws proximally. If fixation appeared to be very good. The alignment of the fracture looked very good as well. C arm image intensifier's were obtained in biplanar mode and showed good alignment of fracture and internal fixation. The syndesmosis was stressed and found to be stable. There was minimal widening of the medial clear space with valgus stress. The wound was thoroughly irrigated using dilute Betadine. 2 g of vancomycin powder was applied over the plate. The subcutaneous tissue was closed with 2 o strata fix and the skin was closed with stainless steel hillary.Xeroform gauze and a well-padded short leg fiberglass splint was applied to the left leg. He did receive 2 g of Ancef intravenously. He tolerated the procedure well. A physician phlebotomy lab assistant was utilized to help with prepping and draping, retraction and protection of vital structures, facilitate reduction of fracture, wound closure and splint application
[2023-05-24] MEDS ORDERED: oxyCODONE 5 MG TABLET PO PRN (15:11)
[2023-05-24 15:56] VITALS: BP 127/99
--- NOTE | 2023-05-24 16:12 | ANESTHESIA POST OP EVALUATION ---
Anesthesia Post Eval - Post Anesthesia Eval Vitals: Last Vital Signs Temp 37.1 C 05/24/23 15:49 Pulse 97 05/24/23 15:49 Resp 14 05/24/23 15:49 BP 127/99 H 05/24/23 15:49 Pulse Ox 97 05/24/23 15:49 O2 Flow Rate CV Function Including HR & BP: Stable Pain Control: Satisfactory Nausea & Vomiting: Negative Mental Status: Baseline Respiratory Status: Airway Patent Hydration Status: Satisfactory Anesthesia Complications: None
[2023-05-24] MEDS ORDERED: ACETAMINOPHEN 500 MG TABLET PO PRN (18:30)
[2023-05-24] MEDS ORDERED: CELECOXIB 100 MG CAPSULE PO PRN (18:30)
== END 2023-05-24 12:04 | disposition home or self-care (01) ==
LOC: SDS 12:03
PROVIDERS: ATTEND Orthopaedic Surgery
DX: S82.62XA Displaced fracture of lateral malleolus of left fibula, initial encounter for closed fracture (principal); S93.422A Sprain of deltoid ligament of left ankle, initial encounter; I10 Essential (primary) hypertension; E66.9 Obesity, unspecified; Z68.30 Body mass index [BMI] 30.0-30.9, adult
CPT/HCPCS: 27792; A9270; C1713; J2795; J3370; J7120

== ENCOUNTER 2023-07-06 08:00 | Outpatient (CLI) | payer OTHER ==
--- NOTE | 2023-07-06 15:56 | XRAY Report ---
PROCEDURE: Ankle 3 View LT INDICATIONS: LEFT ANKLE ORIF TECHNIQUE: 3 views of the ankle were acquired. COMPARISON: 05/21/2023 FINDINGS: Bones: Postsurgical changes from plate and screw fixation of the previously demonstrated lateral mal leolus fracture. Hardware appears intact. Improved fracture alignment compared to before. Plantar lisa caneal spur present. Soft tissues: No tibiotalar joint effusion. IMPRESSION: Improved alignment post lateral malleolus fracture ORIF. Reviewed by: Keron Lam MD on 07/06/2023 3:55 PM PDT Approved by: Keron Lam MD on 07/06/2023 3:55 PM PDT Station ID: [id number]
== END 2023-07-06 23:59 | disposition home or self-care (01) ==
LOC: DI.WOS 08:00
PROVIDERS: ATTEND Orthopaedic Surgery
DX: S82.62XD Displaced fracture of lateral malleolus of left fibula, subsequent encounter for closed fracture with routine healing (principal)

== ENCOUNTER 2023-07-19 07:56 | Outpatient (CLI) | payer OTHER ==
[2023-07-19 08:31] LABS: ALBUMIN 4.3 g/dL (3.2-5.5); ALBUMIN/GLOBULIN RATIO 1.5 (1.0-2.2); ALKALINE PHOSPHATASE 82 IU/L (42-121); ALT ALANINE AMINOTRANSFERASE 25 IU/L (10-60); AST ASPARTATE AMINOTRANSFERASE 15 IU/L (10-42); BILIRUBIN,TOTAL 0.6 mg/dL (0.2-1.0); BUN - BLOOD UREA NITROGEN 22 mg/dL (6-20); CALCIUM 9.1 mg/dL (8.5-10.3); CARBON DIOXIDE - CO2 25 mmol/L (21-32); CHLORIDE 108 mmol/L (101-111); CHOL/HDL RATIO 3.3 (<5.0); CHOLESTEROL 134 mg/dL; GFR - MDRD 74 (>89); GLUCOSE 111 mg/dL (74-104); HDL CHOLESTEROL 41 mg/dL; LDL CHOLESTEROL,CALCULATED 64 mg/dL; LDL/HDL RATIO 1.6 (<3.6); POTASSIUM 4.1 mmol/L (3.5-4.5); SODIUM 140 mmol/L (135-145); TOTAL PROTEIN 7.1 g/dL (6.4-8.9); TRIGLYCERIDES 147 mg/dL (48-352); VLDL CHOLESTEROL 29 mg/dL
== END 2023-07-19 07:57 | disposition home or self-care (01) ==
LOC: LAB 07:56
PROVIDERS: ATTEND Internal Medicine
DX: E78.5 Hyperlipidemia, unspecified (principal)
CPT/HCPCS: 36415; 80053; 80061; 83721

== ENCOUNTER 2023-09-02 12:36 | Outpatient (CLI) | payer OTHER ==
--- NOTE | 2023-09-03 12:59 | XRAY Report ---
PROCEDURE: Shoulder 3 View BILAT INDICATIONS: SHOULDER PAIN,UNSPECIFIED TECHNIQUE: 3 views of the shoulder were acquired. COMPARISON: None. FINDINGS: Bones: No fractures or dislocations. No suspicious bony lesions. Visualized ribs appear intact. Mild degenerative changes present at the chromic clavicular joint. Inferior osteophytes are present a t the glenohumeral joint. Soft tissues: No suspicious soft tissue calcifications. The visualized lungs are within normal limi ts. IMPRESSION: No acute bony abnormality. Moderate osteoarthritis. Reviewed by: Jyoti Dietrich MD on 09/03/2023 12:58 PM [facility] Approved by: Jyoti Dietrich MD on 09/03/2023 12:58 PM [facility] Station ID: [id number]
== END 2023-09-02 12:37 | disposition home or self-care (01) ==
LOC: DI 12:36
PROVIDERS: ATTEND Internal Medicine
DX: M19.011 Primary osteoarthritis, right shoulder (principal); M19.012 Primary osteoarthritis, left shoulder

== ENCOUNTER 2023-09-20 16:23 | Outpatient (CLI) | payer OTHER ==
--- NOTE | 2023-09-22 09:15 | MRI Report ---
PROCEDURE: SHOULDER WO - RT INDICATIONS: SHOULDER PAIN TECHNIQUE: Noncontrast oblique coronal T2 fast spin echo with fat saturation, oblique sagittal T1 spin echo and T2 fast spin echo with fat saturation, axial T1 spin echo and T2 fast spin echo with fat saturation a nd 3-D gradient echo through the shoulder. COMPARISON: Shoulder radiographs 09/02/2023 FINDINGS: Image quality: Excellent. Rotator cuff: Postsurgical changes are seen from prior rotator cuff tendon repair. There is mild het erogeneity of the distal supraspinatus and infraspinatus tendons with small foci of fluid interdigita ting between tendon fibers but no recurrent full-thickness tear. The teres minor tendon is intact. Th ere is moderate subscapularis tendinosis and low-grade partial articular sided tearing of the superio r insertion. The rotator cuff musculature is normal in bulk. Bones and bursae: No acute trabecular bone injury or fracture. Magnetic susceptibility artifact is se en at the greater tuberosity related to postsurgical changes. Chronic traction cystic changes are see n at the posterosuperior humeral head. Partial-thickness cartilage irregularity is seen in the glenoh umeral joint and there is degenerative spurring in the glenoid rim. Moderate degenerative changes are seen in the acromioclavicular joint with subchondral cystic changes and marginal osteophyte formatio n. There is trace fluid in the subacromial/subdeltoid bursa, which is expected in the postsurgical se tting. No significant glenohumeral effusion is seen. Capsule and soft tissues: There is mild diffuse labral degeneration. A chronic appearing nondisplaced tear is seen in the inferior labrum with a 4 mm inferior paralabral cyst. The proximal biceps long h ead tendon demonstrates moderate tendinosis and perching along the medial aspect of the bicipital briana ove. There is intramuscular edema within the lateral belly of the deltoid muscle. There is partial ef facement of the normal fat signal in the rotator interval. The glenohumeral ligaments are grossly int act. IMPRESSION: 1.Postsurgical changes from prior rotator cuff tendon repair. Mild heterogeneity is seen at the dista l supraspinatus and infraspinatus tendons with foci of intrasubstance fluid signal may represent tiny foci of low-grade partial articular sided or intrasubstance tearing. No recurrent full-thickness rot ator cuff tendon tear is seen. 2.Moderate subscapularis tendinosis and low-grade partial articular sided tearing at the distal inser tion. 3.Moderate biceps long head tendinosis with perching along the medial aspect of the bicipital groove. 4.Diffuse labral degeneration. Chronic nondisplaced tearing is seen at the inferior labrum with a sma ll 4 mm paralabral cyst. 5.Intramuscular edema is seen within the lateral belly of the deltoid muscle that could represent a l ow-grade strain, versus recent intramuscular medication injection or vaccination. 6.Moderate acromioclavicular osteoarthrosis. Mild degenerative changes in the glenohumeral joint. Reviewed by: Keron Mcgrath MD on 09/22/2023 9:13 AM PST Approved by: Keron Mcgrath MD on 09/22/2023 9:13 AM PST Station ID: [id number]
--- NOTE | 2023-09-22 09:15 | MRI Report ---
PROCEDURE: SHOULDER WO - LT INDICATIONS: SHOULDER PAIN TECHNIQUE: Noncontrast oblique coronal T2 fast spin echo with fat saturation, oblique sagittal T1 spin echo and T2 fast spin echo with fat saturation, axial T1 spin echo and T2 fast spin echo with fat saturation t hrough the shoulder. COMPARISON: Shoulder radiographs 09/02/2023 FINDINGS: Image quality: Excellent. Rotator cuff: There is full-thickness tearing of the supraspinatus and infraspinatus tendons from the distal insertions with proximal tendon retraction measuring up to 5.3 cm. The teres minor tendon is intact. Moderate to severe tendinosis of the distal subscapularis tendon is seen with high-grade part ial articular sided tearing of the superior insertion. There is mild atrophy of the supraspinatus and infraspinatus muscles with grade 2 fatty infiltration of the supraspinatus muscle and grade 3 fatty infiltration of the infraspinatus muscle. Bones and bursae: No acute trabecular bone injury or fracture. The humeral head is high riding and ab uts the undersurface of the acromion. There is multifocal cartilage irregularity in the glenohumeral joint with marginal osteophyte formation as well as subchondral cystic changes in the glenoid. A 7 x 6 x 4 mm intra-articular loose body is seen in the anterosuperior glenohumeral joint space. Moderate degenerative changes are seen at the acromioclavicular joint. A small amount of fluid in the subacrom ial/subdeltoid bursa communicates with the glenohumeral joint space. Capsule and soft tissues: There is diffuse degeneration and chronic degenerative tearing. Moderate t o severe biceps long head tendinosis and partial intrasubstance tearing with perching along the media l aspect of the bicipital groove. There is partial effacement of the normal fat signal in the rotator interval. The glenohumeral ligaments are grossly intact. IMPRESSION: 1.Complete full-thickness tearing of the supraspinatus and infraspinatus tendons from the distal inse rtions with proximal tendon retraction measuring up to 5.3 cm. There is mild atrophy and fatty infilt ration of the supraspinatus and infraspinatus muscles suggesting the tears are chronic. The humeral h ead is high riding and abuts the undersurface of the acromion. 2.Moderate to severe subscapularis tendinosis and high-grade partial articular sided tearing at the s uperior insertion. 3.Moderate to severe tendinosis of the proximal biceps long head tendon with partial intrasubstance t earing and perching along the mid aspect of the bicipital groove. 4.Diffuse degeneration and chronic degenerative tearing. 5.Moderate glenohumeral and acromioclavicular osteoarthrosis. 6.Intra-articular 7 mm loose body is seen in the glenohumeral joint space. Glenohumeral joint fluid t o indicate with the subacromial/subdeltoid bursa. Reviewed by: Keron Mcgrath MD on 09/22/2023 9:13 AM PST Approved by: Keron Mcgrath MD on 09/22/2023 9:13 AM PST Station ID: [id number]
== END 2023-09-20 16:24 | disposition home or self-care (01) ==
LOC: DI 16:23
PROVIDERS: ATTEND Internal Medicine
DX: M75.122 Complete rotator cuff tear or rupture of left shoulder, not specified as traumatic (principal); M19.012 Primary osteoarthritis, left shoulder; M75.92 Shoulder lesion, unspecified, left shoulder; M67.922 Unspecified disorder of synovium and tendon, left upper arm; M24.012 Loose body in left shoulder; M75.111 Incomplete rotator cuff tear or rupture of right shoulder, not specified as traumatic; M67.921 Unspecified disorder of synovium and tendon, right upper arm; R60.0 Localized edema; M19.011 Primary osteoarthritis, right shoulder; S43.491D Other sprain of right shoulder joint, subsequent encounter

== ENCOUNTER 2024-05-21 12:01 | Outpatient (CLI) | payer OTHER ==
[2024-05-21 12:21] LABS: BASOPHILS # (AUTO) 0.1 10^3/uL (0.0-0.1); BASOPHILS % (AUTO) 0.6 %; EOSINOPHILS # (AUTO) 0.4 10^3/uL (0.0-0.7); EOSINOPHILS % (AUTO) 4.3 %; HCT - HEMATOCRIT 40.4 % (42.0-52.0); HGB - HEMOGLOBIN 13.3 g/dL (14.0-18.0); LYMPHOCYTES % (AUTO) 22.1 %; MEAN CORPUSCULAR HEMOGLOBIN 30.2 pg (27.0-31.0); MEAN CORPUSCULAR HGB CONC 32.9 g/dL (32.0-36.0); MEAN CORPUSCULAR VOLUME 91.8 fL (80.0-94.0); MEAN PLATELET VOLUME 9.7 fL (7.4-11.4); MONOCYTES # (AUTO) 0.8 10^3/uL (0.0-1.0); MONOCYTES % (AUTO) 8.6 %; NEUTROPHILS # (AUTO) 5.7 10^3/uL (1.5-6.6); NEUTROPHILS % (AUTO) 64.3 %; PLT - PLATELET COUNT 224 10^3/uL (130-450); RED CELL DISTRIBUTION WIDTH 13.5 % (12.0-15.0); WHITE BLOOD COUNT 8.8 x10^3/uL (4.8-10.8)
[2024-05-21 12:35] LABS: ALBUMIN 5.1 g/dL (3.2-5.5); ALBUMIN/GLOBULIN RATIO 1.6 (1.0-2.2); ALKALINE PHOSPHATASE 70 IU/L (42-121); ALT ALANINE AMINOTRANSFERASE 25 IU/L (10-60); AST ASPARTATE AMINOTRANSFERASE 17 IU/L (10-42); BILIRUBIN,TOTAL 0.9 mg/dL (0.2-1.0); BUN - BLOOD UREA NITROGEN 27 mg/dL (6-20); CALCIUM 10.3 mg/dL (8.5-10.3); CARBON DIOXIDE - CO2 27 mmol/L (21-32); CHLORIDE 102 mmol/L (101-111); CHOL/HDL RATIO 2.5 (<5.0); CHOLESTEROL 121 mg/dL; CREATININE 1.1 mg/dL (0.6-1.3); GFR - MDRD 66 (>89); GLUCOSE 99 mg/dL (74-104); HDL CHOLESTEROL 48 mg/dL; LDL CHOLESTEROL,CALCULATED 53 mg/dL; LDL/HDL RATIO 1.1 (<3.6); POTASSIUM 4.2 mmol/L (3.5-4.5); SODIUM 135 mmol/L (135-145); TOTAL PROTEIN 8.3 g/dL (6.4-8.9); TRIGLYCERIDES 99 mg/dL; VLDL CHOLESTEROL 20 mg/dL
[2024-05-21 12:59] LABS: ESTIMATED AVERAGE GLUCOSE 88 mg/dL (70-100); HEMOGLOBIN A1c% 4.7 % (4.27-6.07)
== END 2024-05-21 12:02 | disposition home or self-care (01) ==
LOC: LAB 12:01
PROVIDERS: ATTEND Internal Medicine
DX: E78.5 Hyperlipidemia, unspecified (principal); R73.01 Impaired fasting glucose; Z12.5 Encounter for screening for malignant neoplasm of prostate; I10 Essential (primary) hypertension
CPT/HCPCS: 36415; 80053; 80061; 83036; 83721; 84153; 85025